=== PATIENT | male | born 2005 | race African-American/Black ===

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

== ENCOUNTER 2023-01-23 08:27 | Observation (INO) | payer OTHER ==
[2023-01-23] MEDS ORDERED: Fentanyl 100 MCG/2 ML VIAL ONE (10:23)
[2023-01-23] MEDS ORDERED: Ondansetron PF 4 MG/2 ML Vial IVP PRN (11:31)
[2023-01-23] MEDS ORDERED: Morphine 4 MG/ML VIAL SLOW IVP PRN (11:31)
[2023-01-23] MEDS ORDERED: Dextrose 5% in Water 1,000 ML IV PRN (11:31)
[2023-01-23] MEDS ORDERED: Ipratropium/Albuterol 3 ML NEB NEB PRN (11:31)
[2023-01-23] MEDS ORDERED: Dextrose 50% Abboject 50 ML SYRINGE SLOW IVP PRN (11:31)
[2023-01-23] MEDS ORDERED: Morphine 2 MG/ML VIAL SLOW IVP PRN (11:31)
[2023-01-23] MEDS ORDERED: Ondansetron ODT 4 MG TAB PO PRN (11:31)
[2023-01-23] MEDS ORDERED: traMADol HCl 50 MG TAB PO PRN (11:32)
[2023-01-23] MEDS ORDERED: Ondansetron PF 4 MG/2 ML Vial ONE (11:53)
[2023-01-23 11:54] LABS: #Lymphocytes 1.6 thou/uL (1.20-3.40); #Neutrophils 6.7 thou/uL (1.40-6.50); %Basophils 0.2 % (0.0-1.0); %Eosinophils 0.3 % (0.0-10.0); %Lymphocytes 16.7 % (28.0-48.0); %Monocytes 10.7 % (0.0-4.0); %Neutrophils 72.1 % (31.0-61.0); Hemoglobin 13.2 g/dL (14.0-18.0); Mean Corpuscular HGB CONC 33.2 g/dL (32.0-36.0); Mean Corpuscular Hemoglobin 29.1 pg (25.0-35.0); Mean Corpuscular Volume 87.8 fl (78.0-98.0); Mean Platelet Volume 7.7 fL (7.4-10.4); Platelet Count 238 10x3/uL (130-400); RBC Distribution Width 11.5 % (11.5-14.5); Red Blood Cell (RBC) Count 4.52 mill/uL (4.00-5.20); White Blood Cell (WBC) Count 9.3 10x3/uL (4.8-10.8)
[2023-01-23] MEDS: Ampicillin/Sulbactam 3 GM in Sodium Chloride 0.9% 100 ML IVPB SCH ×4 (12:00→23:49)
[2023-01-23 12:12] LABS: ALT (SGPT) 12 U/L (8-55); AST (SGOT) 11 U/L (10-45); Alkaline Phosphatase 57 U/L (50-130); Anion Gap 13 mmol/L (10-20); BUN (Urea Nitrogen) 12 mg/dL (8.4-21.0); Bilirubin, Total 0.9 mg/dL (0.2-1.2); Calc. Creatinine Clearance 0 mL/min (70-130); Calcium 10.1 mg/dL (7.8-10.44); Carbon Dioxide 29 mmol/L (22-29); Chloride 101 mmol/L (98-107); Estimated GFR 103; Glucose 93 mg/dL (70-105); Potassium 4.6 mmol/L (3.5-5.1); Sodium 138 mmol/L (136-145)
[2023-01-23 12:13] LABS: INR-International Normal Ratio 1.1
[2023-01-23 12:14] LABS: PTT 35.7 sec (22.9-36.1)
[2023-01-23] MEDS: traMADol HCl 50 MG TAB PO SCH ×3 (12:30→23:48)
[2023-01-23] MEDS: Acetaminophen 500 MG TAB PO SCH ×3 (12:30→23:47)
[2023-01-23] MEDS ORDERED: TETANUS, DIPHTHERIA TOX,ADULT (TDVAX) 0.5 ML VIAL IM ONE (14:00)
[2023-01-23] MEDS ORDERED: Boostrix 0.5 ML (Tdap) VIAL (>/=7 yrs of age) ONE (14:14)
[2023-01-23] MEDS ORDERED: traMADol HCl 50 MG TAB ONE (14:14)
[2023-01-23] MEDS ORDERED: Acetaminophen 500 MG TAB ONE (14:14)
[2023-01-23 15:32] LABS: SARS-CoV-2 NAA Rapid Test Not Detected (NotDetected)
[2023-01-23] MEDS ORDERED: Dexamethasone 10 MG/ML VIAL ONE (17:16)
[2023-01-23] MEDS ORDERED: Ampicillin/Sulbactam 3 GM in Sodium Chloride 0.9% 100 ML IVPB SCH (18:00)
[2023-01-23] MEDS ORDERED: Lactated Ringer's 1,000 ML IV SCH (18:00)
[2023-01-23] MEDS ORDERED: Chlorhexidine Gluconate 15 ML UDCUP SSP SCH ×2 (18:30→21:00)
[2023-01-23 18:35] VITALS: BMI 18.7
[2023-01-23] MEDS: Dexamethasone 4 mg/ml Vial SLOW IVP SCH (18:45)
[2023-01-23] MEDS: Senokot S 8.6-50 MG TAB PO SCH (21:50)
[2023-01-23] MEDS: Famotidine 20 MG TAB PO SCH (21:51)
[2023-01-24] MEDS: Dexamethasone 4 mg/ml Vial SLOW IVP SCH ×2 (03:18→20:13)
[2023-01-24] MEDS: Acetaminophen 500 MG TAB PO SCH ×4 (06:36→23:20)
[2023-01-24] MEDS: traMADol HCl 50 MG TAB PO SCH ×4 (06:37→23:20)
[2023-01-24] MEDS: Ampicillin/Sulbactam 3 GM in Sodium Chloride 0.9% 100 ML IVPB SCH ×5 (06:39→23:19)
[2023-01-24] MEDS ORDERED: Sodium Chloride 0.9% 1,000 ML IV SCH (07:30)
[2023-01-24] MEDS: Senokot S 8.6-50 MG TAB PO SCH ×2 (08:48→20:18)
[2023-01-24] MEDS: Famotidine 20 MG TAB PO SCH ×2 (08:48→20:18)
[2023-01-24] MEDS: Chlorhexidine Gluconate 15 ML UDCUP SSP SCH ×2 (08:48→20:19)
[2023-01-24] MEDS: Polyethylene Glycol 3350 17 GM Packet PO SCH (11:14)
[2023-01-24] MEDS ORDERED: EPINEPHrine 1 MG/ML AMP ONE (13:15)
[2023-01-24] MEDS ORDERED: Chlorhexidine Gluconate 15 ML UDCUP SSP ONE (13:15)
[2023-01-24] MEDS ORDERED: Lidocaine 1% (PF) 30 ML VIAL ONE (13:15)
[2023-01-24] MEDS ORDERED: Bacitracin Zinc Ointment 30 gm TUBE ONE (13:15)
[2023-01-24] MEDS ORDERED: MINERAL OIL/WHITE PETROLATUM 3.5 GM TUBE ONE (13:23)
[2023-01-24] MEDS ORDERED: Oxymetazoline HCl 0.05% (30 ML BOT) ONE (13:23)
[2023-01-24] MEDS ORDERED: Lidocaine 2% 6 ML SYR ONE (13:26)
[2023-01-24] MEDS ORDERED: fentaNYL PF 100 MCG/2 ML SYRINGE ONE ×3 (13:56→18:57)
[2023-01-24] MEDS ORDERED: Midazolam HCl 2 mg/2 ml Vial ONE (13:57)
[2023-01-24] MEDS ORDERED: Lidocaine 4% Topical Sol 50 ML BOT ONE (13:57)
[2023-01-24] MEDS ORDERED: Famotidine/PF 20 mg/2ml Vial ONE (13:57)
[2023-01-24] MEDS ORDERED: PROPOFOL 200 MG/20 ML VIAL ONE (14:21)
[2023-01-24] MEDS ORDERED: Rocuronium Bromide 10 MG/ML (10ML VIAL) ONE (14:21)
[2023-01-24] MEDS ORDERED: Lidocaine 1% PF 5 ML VIAL ONE (14:21)
[2023-01-24] MEDS ORDERED: Dexamethasone 20 MG/5 ML VIAL ONE (14:21)
[2023-01-24] MEDS ORDERED: Neomycin-Polymyxin 1 ML AMP ONE ×2 (15:16→17:36)
[2023-01-24] MEDS ORDERED: Bupivacaine/Epinephrine 0.25% 30 ML VIAL ONE (18:08)
[2023-01-24] MEDS ORDERED: Promethazine HCl 25 MG/ML VIAL IM PRN (18:51)
[2023-01-24] MEDS ORDERED: Ondansetron HCl/PF 4 MG/2 ML Vial IVP PRN (18:51)
[2023-01-24] MEDS ORDERED: PACU-Morphine 4MG/ML VIAL SLOW IVP PRN (18:51)
[2023-01-24] MEDS ORDERED: HYDROmorphone 2 MG/ML VIAL SLOW IVP PRN (18:51)
[2023-01-24] MEDS ORDERED: Ketorolac Tromethamine 30 MG/ML VIAL ONE (18:53)
[2023-01-24] MEDS: Lactated Ringer's 1,000 ML IV SCH ×2 (18:55→23:21)
[2023-01-24] MEDS ORDERED: Ketorolac Tromethamine 30 MG/ML VIAL IVP PRN (19:14)
[2023-01-24] MEDS ORDERED: Morphine 2 MG/ML VIAL SLOW IVP PRN (19:14)
[2023-01-25] MEDS: Dexamethasone 4 mg/ml Vial SLOW IVP SCH (04:59)
[2023-01-25] MEDS: Ampicillin/Sulbactam 3 GM in Sodium Chloride 0.9% 100 ML IVPB SCH ×2 (05:04→13:04)
[2023-01-25] MEDS: Acetaminophen 500 MG TAB PO SCH ×2 (05:05→12:05)
[2023-01-25] MEDS: traMADol HCl 50 MG TAB PO SCH ×2 (05:05→13:05)
[2023-01-25 06:13] LABS: #Lymphocytes 0.8 thou/uL (1.20-3.40); #Monocytes 0.8 thou/uL (0.11-0.59); #Neutrophils 7.5 thou/uL (1.40-6.50); %Basophils 0.1 % (0.0-1.0); %Eosinophils 0.2 % (0.0-10.0); %Lymphocytes 8.8 % (28.0-48.0); %Monocytes 8.5 % (0.0-4.0); %Neutrophils 82.3 % (31.0-61.0); Hemoglobin 10.8 g/dL (14.0-18.0); Mean Corpuscular HGB CONC 34.9 g/dL (32.0-36.0); Mean Corpuscular Hemoglobin 30.7 pg (25.0-35.0); Platelet Count 189 10x3/uL (130-400); RBC Distribution Width 11.3 % (11.5-14.5); Red Blood Cell (RBC) Count 3.51 mill/uL (4.00-5.20); White Blood Cell (WBC) Count 9.2 10x3/uL (4.8-10.8)
[2023-01-25 06:30] LABS: Anion Gap 14 mmol/L (10-20); BUN (Urea Nitrogen) 15 mg/dL (8.4-21.0); Calc. Creatinine Clearance 106 mL/min (70-130); Calcium 9.2 mg/dL (7.8-10.44); Carbon Dioxide 26 mmol/L (22-29); Chloride 105 mmol/L (98-107); Estimated GFR 109; Glucose 135 mg/dL (70-105); Magnesium 1.7 mg/dL (1.7-2.2); Phosphorus 3.3 mg/dL (2.3-4.7); Potassium 4.4 mmol/L (3.5-5.1); Sodium 141 mmol/L (136-145)
[2023-01-25] MEDS: Famotidine 20 MG TAB PO SCH (09:40)
[2023-01-25] MEDS: Senokot S 8.6-50 MG TAB PO SCH (09:40)
[2023-01-25] MEDS: Polyethylene Glycol 3350 17 GM Packet PO SCH (09:41)
[2023-01-25] MEDS: Chlorhexidine Gluconate 15 ML UDCUP SSP SCH (09:41)
[2023-01-25] MEDS: Lactated Ringer's 1,000 ML IV SCH (10:01)
[2023-01-25 12:47] VITALS: BP 97/52; TEMP 98.1
[2023-01-25] MEDS ORDERED: Amoxicillin/Potassium Clav 875 MG TAB PO SCH (21:00)
== END 2023-01-25 16:20 ==
LOC: ERS 08:27 → ERHOLD 11:51 → EEVIPCON 11:51 → SURG B 17:36
PROVIDERS: ADMIT Surgery; ATTEND Surgery
PROC: 0NSV04Z Reposition Left Mandible with Internal Fixation Device, Open Approach (ICD-10-PCS; principal; 2023-01-24)
PROC: 0NST04Z Reposition Right Mandible with Internal Fixation Device, Open Approach (ICD-10-PCS; 2023-01-24)
PROC: 0CDXXZ0 Extraction of Lower Tooth, Single, External Approach (ICD-10-PCS; 2023-01-24)
DX: S02.652A Fracture of angle of left mandible, initial encounter for closed fracture (principal); S02.601A Fracture of unspecified part of body of right mandible, initial encounter for closed fracture; S02.5XXA Fracture of tooth (traumatic), initial encounter for closed fracture; K01.1 Impacted teeth; G89.11 Acute pain due to trauma; F17.210 Nicotine dependence, cigarettes, uncomplicated; F12.10 Cannabis abuse, uncomplicated; F20.9 Schizophrenia, unspecified; F43.10 Post-traumatic stress disorder, unspecified; F32.A Depression, unspecified; Z91.14 Patient's other noncompliance with medication regimen; Z79.899 Other long term (current) drug therapy; Y04.2XXA Assault by strike against or bumped into by another person, initial encounter; Y92.149 Unspecified place in prison as the place of occurrence of the external cause
CPT/HCPCS: 36415; 70450; 70486; 72125; 76377; 80048; 80053; 83735; 84100; 85025; 85610; 85730; 86850; 86900; 86901; 90714; 90715; 93005; 96365; 96366; 96372; 96375; 96376; C1713; G0378; J0171; J0295; J1100; J1885; J2001; J2250; J2405; J2704; J3010; J3490; J7050; J7120; S0028; U0002